=== PATIENT | female | born 1970 | race Two or more races ===

== ENCOUNTER → 2017-04-19 | Outpatient (CLI) | payer OTHER | END | disposition home or self-care (01) | LOC: CFH 14:13 | PROVIDERS: ATTEND Family Medicine | DX: Z12.31 Encounter for screening mammogram for malignant neoplasm of breast (principal) | CPT/HCPCS: 77067 ==

== ENCOUNTER 2020-07-21 03:39 | Emergency (ER) | payer OTHER ==
[~2020-07-21] VITALS: Ht 170.2 cm; Wt 89.2 kg
--- NOTE | 2020-07-21 04:35 | NUR ---
PT RETURNED FROM XR, SITTING UPRIGHT ON GURNEY AWAKE & COMFORTABLE, COMORT MEASURES PROVIDED, CALL LIGHT WITHIN REACH. Addendum: 07/21/20 at 0507 by MARIBELL PT RETURNED FROM XR, SITTING UPRIGHT ON GURNEY AWAKE & COMFORTABLE, COMFORT MEASURES PROVIDED, CALL LIGHT WITHIN REACH.
[2020-07-21 05:12] LABS: ALBUMIN 3.4 g/dL (3.4-5.0); ANION GAP 6 mmol/L (5-15); CALCIUM 8.8 mg/dL (8.5-10.1); CHLORIDE 107 mmol/L (98-107)
[2020-07-21 05:21] LABS: BASOPHILS % (AUTO) 1 % (0-1); EOSINOPHILS % (AUTO) 1 % (1-7); LYMPHOCYTES % (AUTO) 34 % (22-44); MEAN CORPUSCULAR HEMOGLOBIN 27.2 pg (27.0-34.8); MEAN CORPUSCULAR HGB CONC 33.5 g/dL (32.4-35.8); MEAN PLATELET VOLUME 6.9 fL (7.4-10.4); MONOCYTES % (AUTO) 6 % (2-9); NEUTROPHILS % (AUTO) 58 % (42-75); PLATELET COUNT 353 x10^3/uL (130-400); RED BLOOD COUNT 4.67 x10^6/uL (3.82-5.3); RED CELL DISTRIBUTION WIDTH 13.7 % (9.6-15.2)
[2020-07-21 05:22] LABS: MD NO
[2020-07-21 05:24] LABS: ALANINE AMINOTRANSFERASE 13 U/L (12-78); ALKALINE PHOSPHATASE 105 U/L (45-117); BILIRUBIN,TOTAL 0.5 mg/dL (0.2-1.0); CREATININE 0.86 mg/dL (0.55-1.02); TOTAL PROTEIN 7.7 g/dL (6.4-8.2)
[2020-07-21 05:38] VITALS: BP 137/74
--- NOTE | 2020-07-21 05:54 | NUR ---
Patient given discharge instructions and they have confirmed that they understand the instructions. Patient ambulatory with steady gait.
== END 2020-07-21 06:00 | disposition home or self-care (01) ==
LOC: ED 04:50
DX: K59.00 Constipation, unspecified (principal)
CPT/HCPCS: 36415; 74021; 80053; 83690; 84443; 84703; 85025; 99284